=== PATIENT | female | born 1935 | race Caucasian/White ===

== ENCOUNTER 2017-01-02 13:22 | Emergency (ER) | payer OTHER ==
[~2017-01-02] VITALS: Ht 167.6 cm; Wt 75.0 kg
[~2017-01-02 13:22] MED LIST: ADVAIR HFA120 INHALA IH; HYDROCHLOROTHIA25 MG PO; KLOR-CON M2020 MEQ PO; LIPITOR80 MG PO; LO-DOSE ASPIRIN81 M1 PO; LOTRISONE15 GM TP; METHYLDOPA500 MG PO; PREDNISONE20 MG PO; SPIRIVA1 INHALATI IH; SYMBICORT60 INHALA1 IH; VENTOLIN HFA18 GM IH; VERAPAMIL ER300 MG PO; ZADITOR 0.100 DROP/5 BOTH EYES
[2017-01-02 16:09] LABS: MCH 32.7 PG (29.0-34.0); MCHC 33.9 G/DL (30.0-36.0); MCV 96.5 FL (83-99); MEAN PLAT.VOLUME 11.6 uM^3 (9.5-12.4); PLATELET COUNT 184 K/uL (156-360); RBC DIS.WIDTH-CV 13.4 % (11.8-14.6); RBC DIS.WIDTH-SD 47.5 % (39-53); RED BLOOD COUNT 4.25 M/uL (3.80-5.20); WHITE BLOOD COUNT 10.6 K/uL (4.1-10.2)
[2017-01-02 16:18] LABS: CHLORIDE 103 mEq/L (99-109); POTASSIUM 3.7 mEq/L (3.7-5.4); SODIUM 138 mEq/L (136-147)
[2017-01-02 16:20] LABS: GLUCOSE 98 mg/dL (70-99)
[2017-01-02 16:22] LABS: ANION GAP 11 MEQ/L (2-14)
[2017-01-02 16:24] LABS: GFR ESTIMATE (CALCULATED) > 59 mL/min/
[2017-01-02 16:26] LABS: UREA NITROGEN (BUN) 13 mg/dL (9-23)
[2017-01-02 16:30] LABS: TROP-I INTERPRETATION NEGATIVE; TROPONIN-I < 0.01 ng/mL (0.0-0.30)
[2017-01-02 18:15] LABS: ADD MIUA? NO; BILIRUBIN NEGATIVE; BLOOD NEGATIVE; COLOR YELLOW ((YELLOW)); GLUCOSE (STRIP) NEGATIVE; KETONES NEGATIVE; LEUKOCYTES NEGATIVE; NITRITE NEGATIVE; PROTEIN (STRIP) NEGATIVE; SPECIFIC GRAVITY 1.012 (1.000-1.030); UCUL ADDED? NO; UROBILINOGEN 0.2 MG/DL (0.2-1.0)
[2017-01-02 19:01] VITALS: BP 177/63
== END 2017-01-02 19:09 | disposition home or self-care (01) ==
LOC: EME 13:22
PROVIDERS: Emergency Medicine
DX: R53.1 Weakness (principal); J44.9 Chronic obstructive pulmonary disease, unspecified; E78.5 Hyperlipidemia, unspecified; I10 Essential (primary) hypertension; Z87.891 Personal history of nicotine dependence; Z85.3 Personal history of malignant neoplasm of breast; Z88.0 Allergy status to penicillin; Z88.2 Allergy status to sulfonamides
CPT/HCPCS: 71010; 80048; 81003; 84484; 85027; 93005; 99281; 99284

== ENCOUNTER 2017-09-23 05:57 | Observation (INO) | payer OTHER ==
[~2017-09-23] VITALS: Ht 152.4 cm; Wt 69.3 kg
[2017-09-23 06:46] LABS: APPEARANCE CLEAR ((CLEAR)); BILIRUBIN NEGATIVE; BLOOD NEGATIVE; COLOR STRAW ((YELLOW)); GLUCOSE (STRIP) NEGATIVE; KETONES NEGATIVE; LEUKOCYTES NEGATIVE; NITRITE NEGATIVE; PROTEIN (STRIP) 30; UROBILINOGEN 0.2 MG/DL (0.2-1.0)
[2017-09-23 07:00] LABS: BASOPHIL (%) 0.4 % (0-1); EOSINOPHIL (%) 0.8 % (0-5); EOSINOPHIL COUNT 0.1 K/uL (0-0.3); HEMATOCRIT 36.9 % (36.0-46.0); HEMOGLOBIN 12.6 G/DL (11.9-15.5); IMMATURE GRANULOCYTE (%) 0.5 % (0.0-0.7); LYMPHOCYTE (%) 15.1 % (15-42); LYMPHOCYTE COUNT 1.3 K/uL (1.0-2.8); MCH 32.3 PG (29.0-34.0); MCHC 34.1 G/DL (30.0-36.0); MCV 94.6 FL (83-99); MONOCYTE (%) 10.2 % (3-12); MONOCYTE COUNT 0.9 K/uL (0-0.8); NEUTROPHIL COUNT 6.1 K/uL (1.8-6.4); PLATELET COUNT 216 K/uL (156-360); RBC DIS.WIDTH-CV 13.7 % (11.8-14.6); RBC DIS.WIDTH-SD 47.7 % (39-53); WHITE BLOOD COUNT 8.3 K/uL (4.1-10.2)
[2017-09-23 07:37] LABS: CHLORIDE 96 MEQ/L (99-109); CREATINE KINASE 42 IU/L (1-294); CREATININE 0.4 MG/DL (0.6-1.3); GFR ESTIMATE (CALCULATED) > 59 mL/min/; GLUCOSE 98 mg/dL (70-99); POTASSIUM 3.2 MEQ/L (3.7-5.4); SODIUM 132 MEQ/L (136-147); TOTAL CK 42 IU/L (1-294); UREA NITROGEN (BUN) 11 mg/dL (9-23)
[2017-09-23 08:11] LABS: CK-MB 1.3 ng/mL (0.0-4.9); CKMB RELATIVE INDEX 3.1 (0.0-3.9)
[2017-09-23 14:48] LABS: TROP-I INTERPRETATION NEGATIVE; TROPONIN-I 0.01 ng/mL (0.0-0.30)
[2017-09-23] MEDS ORDERED: ARIMIDEX1 MG PO (15:10)
[2017-09-23] MEDS ORDERED: VITAMIN D32000 UNI1 PO (15:10)
[2017-09-23 16:30] VITALS: BP 120/58
[2017-09-23 17:05] LABS: TOTAL BILIRUBIN 1.2 mg/dL (0.0-1.0)
[2017-09-23 17:09] LABS: ALBUMIN 3.9 g/dL (3.2-4.8)
[2017-09-23 17:12] LABS: TOTAL PROTEIN 6.7 g/dL (6.4-8.3)
[2017-09-23 17:15] LABS: ALKALINE PHOSPHATASE 204 IU/L (3-129)
[2017-09-23 17:17] LABS: AST (GOT) 346 IU/L (2-34); DIRECT BILIRUBIN 0.6 mg/dL (0.0-0.3)
[2017-09-23 17:18] LABS: ALT (GPT) 197 IU/L (3-49)
[2017-09-23 20:01] VITALS: BP 105/63
[2017-09-23 23:37] VITALS: BP 98/52
[2017-09-24 04:08] VITALS: BP 134/71
[2017-09-24 06:07] LABS: HEMATOCRIT 37.2 % (36.0-46.0); HEMOGLOBIN 12.6 G/DL (11.9-15.5); MCH 32.4 PG (29.0-34.0); MCHC 33.9 G/DL (30.0-36.0); MCV 95.6 FL (83-99); PLATELET COUNT 196 K/uL (156-360); RBC DIS.WIDTH-CV 14.1 % (11.8-14.6); RBC DIS.WIDTH-SD 49.4 % (39-53); RED BLOOD COUNT 3.89 M/uL (3.80-5.20); WHITE BLOOD COUNT 10.6 K/uL (4.1-10.2)
[2017-09-24 06:10] LABS: CHLORIDE 96 MEQ/L (99-109); CREATININE 0.5 MG/DL (0.6-1.3); GFR ESTIMATE (CALCULATED) > 59 mL/min/; GLUCOSE 91 mg/dL (70-99); SODIUM 134 MEQ/L (136-147); UREA NITROGEN (BUN) 13 mg/dL (9-23)
[2017-09-24 06:14] LABS: POTASSIUM 3.9 MEQ/L (3.7-5.4)
[2017-09-24 08:29] VITALS: BP 135/61
[2017-09-24 10:29] LABS: ALBUMIN 3.6 G/DL (3.2-4.8); ALKALINE PHOSPHATASE 146 IU/L (3-129); ALT (GPT) 108 IU/L (3-49); AST (GOT) 81 IU/L (2-34); DIRECT BILIRUBIN 0.2 mg/dL (0.0-0.3); LIPASE 8 U/L (1.0-51.0); TOTAL PROTEIN 6.1 G/DL (6.4-8.3)
[2017-09-24 12:04] VITALS: BP 115/57
[2017-09-24] MEDS ORDERED: Thiamine,Vitamin B1 PO (13:00)
[2017-09-24] MEDS ORDERED: FOLIC ACID1 MG PO (13:00)
[2017-09-24] MEDS ORDERED: CHLORDIAZEPOXID25 MG PO (13:02)
[2017-09-25 10:46] LABS: HEPATITIS B SURFACE ANTIGEN Nonreactive
[2017-09-25 10:47] LABS: ANTI-HEPATITIS A VIRUS (IGM) Nonreactive; HEPATITIS C ANTIBODY Nonreactive
[2017-09-25 10:49] LABS: ANTI-HEPATITIS B CORE (IGM) Nonreactive
== END 2017-09-24 13:51 ==
LOC: EME 05:57 → 3EAST 14:06 → EDOF 14:06 → ENRESERV 14:12 → 3EAST 15:32
PROVIDERS: Emergency Medicine; Physician Assistant
DX: M25.552 Pain in left hip (principal); W18.30XA Fall on same level, unspecified, initial encounter; F10.20 Alcohol dependence, uncomplicated; R79.89 Other specified abnormal findings of blood chemistry; E87.6 Hypokalemia; E87.1 Hypo-osmolality and hyponatremia; F43.21 Adjustment disorder with depressed mood; Z63.4 Disappearance and death of family member; R26.89 Other abnormalities of gait and mobility; D32.0 Benign neoplasm of cerebral meninges; J44.9 Chronic obstructive pulmonary disease, unspecified; I10 Essential (primary) hypertension; F32.9 Major depressive disorder, single episode, unspecified; Z85.3 Personal history of malignant neoplasm of breast; Z79.810 Long term (current) use of selective estrogen receptor modulators (SERMs); M48.00 Spinal stenosis, site unspecified; M19.90 Unspecified osteoarthritis, unspecified site; Z87.891 Personal history of nicotine dependence; E78.5 Hyperlipidemia, unspecified; Z79.82 Long term (current) use of aspirin; Z90.710 Acquired absence of both cervix and uterus; Z90.79 Acquired absence of other genital organ(s); Z90.722 Acquired absence of ovaries, bilateral; Z88.0 Allergy status to penicillin; Z88.2 Allergy status to sulfonamides; Z88.8 Allergy status to other drugs, medicaments and biological substances; Z91.048 Other nonmedicinal substance allergy status
CPT/HCPCS: 70450; 70553; 73502; 80048; 80074; 80076; 81003; 82550; 82553; 83690; 83735; 83930; 83935; 84300; 84484; 85025; 85027; 86705; 86709; 86803; 87340; 93005; 93971; 94640; 94799; 99202; 99281; 99285; G0378; G8978 GP CM; G8979 CJ; G8980 GP CM; G8987 GO CJ; G8988 CI; G8989 CJ; J0360; J1644; J2060; J7030

== ENCOUNTER 2017-09-24 13:57 | Inpatient (IN) | payer OTHER ==
[~2017-09-24] VITALS: Ht 152.4 cm; Wt 67.3 kg
[2017-09-24 13:50] VITALS: BP 116/56
[~2017-09-24 13:57] MED LIST changes: +ARIMIDEX1 MG PO; +CHLORDIAZEPOXID25 MG PO; +FOLIC ACID1 MG PO; +Thiamine,Vitamin B1 PO; +VITAMIN D32000 UNI1 PO
[2017-09-25 00:36] VITALS: BP 126/59
[2017-09-25 05:20] VITALS: BP 130/80
[2017-09-25 07:47] LABS: HEMATOCRIT 36.4 % (36.0-46.0); HEMOGLOBIN 12.3 G/DL (11.9-15.5); MCH 32.2 PG (29.0-34.0); MCHC 33.8 G/DL (30.0-36.0); MCV 95.3 FL (83-99); PLATELET COUNT 187 K/uL (156-360); RBC DIS.WIDTH-SD 48.8 % (39-53); RED BLOOD COUNT 3.82 M/uL (3.80-5.20); WHITE BLOOD COUNT 5.8 K/uL (4.1-10.2)
[2017-09-25 08:17] LABS: ALBUMIN 3.1 G/DL (3.2-4.8); ALKALINE PHOSPHATASE 111 IU/L (3-129); ALT (GPT) 73 IU/L (3-49); CHLORIDE 100 MEQ/L (99-109); CREATININE 0.4 MG/DL (0.6-1.3); GFR ESTIMATE (CALCULATED) > 59 mL/min/; GLUCOSE 95 mg/dL (70-99); POTASSIUM 3.5 MEQ/L (3.7-5.4); SODIUM 137 MEQ/L (136-147); TOTAL PROTEIN 5.3 G/DL (6.4-8.3); UREA NITROGEN (BUN) 11 mg/dL (9-23)
[2017-09-25 08:34] LABS: AST (GOT) 41 IU/L (2-34); TOTAL BILIRUBIN 0.6 MG/DL (0.0-1.0)
[2017-09-25 15:48] VITALS: BP 129/61
[2017-09-26 06:38] VITALS: BP 138/77
[2017-09-26 06:50] VITALS: BP 153/67
[2017-09-26 08:07] LABS: PTT 36.3 SEC (25-37)
[2017-09-26 11:54] LABS: APPEARANCE HAZY/YELLOW; RED CELL COUNT 5200 /MM^3 (0-1); WHITE CELL COUNT 128 /MM^3 (0-200.0)
[2017-09-26 12:27] LABS: CRYSTALS ND
[2017-09-26 12:32] LABS: MONONUCLEAR WBC'S 88 %; POLYNUCLEAR WBC'S 12 % (0-25); SYNOVIAL FLUID EOSINOPHILS 0 % (0-25)
[2017-09-26 15:06] VITALS: BP 128/60
[2017-09-27 05:28] VITALS: BP 126/65
[2017-09-27 15:47] VITALS: BP 158/69
[2017-09-28 05:59] VITALS: BP 160/75
[2017-09-28 15:23] VITALS: BP 141/63
[2017-09-28 16:34] LABS: HEMATOCRIT 36.8 % (36.0-46.0); HEMOGLOBIN 11.9 G/DL (11.9-15.5); MCH 32.5 PG (29.0-34.0); MCHC 32.3 G/DL (30.0-36.0); PLATELET COUNT 205 K/uL (156-360); RBC DIS.WIDTH-CV 14.4 % (11.8-14.6); RBC DIS.WIDTH-SD 53.8 % (39-53); RED BLOOD COUNT 3.66 M/uL (3.80-5.20); WHITE BLOOD COUNT 8.3 K/uL (4.1-10.2)
[2017-09-28 16:35] LABS: MCV 100.5 FL (83-99)
[2017-09-28 16:57] LABS: CHLORIDE 104 MEQ/L (99-109); CREATININE 0.6 MG/DL (0.6-1.3); GFR ESTIMATE (CALCULATED) > 59 mL/min/; GLUCOSE 96 mg/dL (70-99); SODIUM 137 MEQ/L (136-147); UREA NITROGEN (BUN) 18 mg/dL (9-23)
[2017-09-28 16:58] LABS: POTASSIUM 4.8 MEQ/L (3.7-5.4)
[2017-09-29 04:58] VITALS: BP 118/59
[2017-09-29 16:17] VITALS: BP 153/66
[2017-09-30 06:13] VITALS: BP 169/70
[2017-09-30 16:22] VITALS: BP 96/47
[2017-10-01 06:00] VITALS: BP 134/90
[2017-10-01 15:17] VITALS: BP 124/58
[2017-10-02 05:55] VITALS: BP 151/70
[2017-10-02 15:10] VITALS: BP 134/60
[2017-10-03 05:37] VITALS: BP 132/61
[2017-10-03 08:20] VITALS: BP 135/63
[2017-10-03 15:42] VITALS: BP 136/62
[2017-10-04 05:19] VITALS: BP 140/65
[2017-10-04 08:30] VITALS: BP 122/56
[2017-10-04 15:19] VITALS: BP 146/67
[2017-10-05 04:53] VITALS: BP 167/82
[2017-10-05 07:03] LABS: BASOPHIL (%) 0.9 % (0-1); BASOPHIL COUNT 0.1 K/uL (0-0.1); EOSINOPHIL (%) 1.5 % (0-5); EOSINOPHIL COUNT 0.1 K/uL (0-0.3); HEMATOCRIT 36.3 % (36.0-46.0); HEMOGLOBIN 11.6 G/DL (11.9-15.5); IMMATURE GRANULOCYTE (%) 0.7 % (0.0-0.7); LYMPHOCYTE (%) 23.4 % (15-42); LYMPHOCYTE COUNT 1.3 K/uL (1.0-2.8); MCH 31.4 PG (29.0-34.0); MCV 98.1 FL (83-99); MONOCYTE (%) 11.3 % (3-12); MONOCYTE COUNT 0.6 K/uL (0-0.8); NEUTROPHIL (%) 62.2 % (45-76); NEUTROPHIL COUNT 3.4 K/uL (1.8-6.4); PLATELET COUNT 243 K/uL (156-360); RBC DIS.WIDTH-SD 50.8 % (39-53); WHITE BLOOD COUNT 5.5 K/uL (4.1-10.2)
[2017-10-05 07:22] LABS: ALBUMIN 3.4 G/DL (3.2-4.8); CHLORIDE 109 MEQ/L (99-109); POTASSIUM 4.2 MEQ/L (3.7-5.4); SODIUM 142 MEQ/L (136-147); TOTAL BILIRUBIN 0.4 MG/DL (0.0-1.0)
[2017-10-05 07:28] LABS: ALKALINE PHOSPHATASE 81 IU/L (3-129); ALT (GPT) 42 IU/L (3-49); AST (GOT) 22 IU/L (2-34); CREATININE 0.5 MG/DL (0.6-1.3); GFR ESTIMATE (CALCULATED) > 59 mL/min/; GLUCOSE 89 mg/dL (70-99); TOTAL PROTEIN 5.7 G/DL (6.4-8.3); UREA NITROGEN (BUN) 16 mg/dL (9-23)
[2017-10-05 15:05] VITALS: BP 108/64
[2017-10-06 04:22] VITALS: BP 143/65
[2017-10-06 15:30] VITALS: BP 114/56
[2017-10-07 05:39] VITALS: BP 141/67
[2017-10-07 15:52] VITALS: BP 106/47
[2017-10-08 05:56] VITALS: BP 146/68
[2017-10-08] MEDS ORDERED: CALAN SR,COVER240 MG PO (08:24)
[2017-10-08] MEDS ORDERED: Thiamine,Vitamin B1 PO (08:24)
[2017-10-08] MEDS ORDERED: SENNA PLUS TAB1 EACH PO (08:24)
[2017-10-08] MEDS ORDERED: POLYETHYLENE GL17 GM PO (08:24)
[2017-10-08] MEDS ORDERED: KLOR-CON M2020 MEQ PO (08:24)
[2017-10-08] MEDS ORDERED: ALDOMET250 MG PO (08:24)
[2017-10-08] MEDS ORDERED: SPIRIVA1 INHALATI IH (08:24)
[2017-10-08] MEDS ORDERED: FOLIC ACID1 MG PO (08:24)
[2017-10-08] MEDS ORDERED: SYMBICORT60 INHALA1 IH (08:24)
[2017-10-08 11:19] VITALS: BP 155/67
== END 2017-10-08 13:55 | disposition home health service (06) | DRG 560 ==
LOC: 3WEST 13:57 → ENPENDDIS 10-08 → 3WEST 10-08 13:55
PROVIDERS: Physical Medicine & Rehabilitation Pain Medicine; Psychiatry & Neurology Neurology; Radiology Diagnostic Radiology
PROC: F07M0ZZ Range of Motion and Joint Mobility Treatment of Musculoskeletal System - Whole Body (ICD-10-PCS; principal; 2017-09-24)
PROC: 0S9B3ZX Drainage of Left Hip Joint, Percutaneous Approach, Diagnostic (ICD-10-PCS; 2017-09-26)
DX: M84.352D Stress fracture, left femur, subsequent encounter for fracture with routine healing (principal); E87.1 Hypo-osmolality and hyponatremia; G45.8 Other transient cerebral ischemic attacks and related syndromes; F33.9 Major depressive disorder, recurrent, unspecified; R53.1 Weakness; I10 Essential (primary) hypertension; J44.9 Chronic obstructive pulmonary disease, unspecified; K59.00 Constipation, unspecified; I35.0 Nonrheumatic aortic (valve) stenosis; W18.30XD Fall on same level, unspecified, subsequent encounter; M47.896 Other spondylosis, lumbar region; M16.0 Bilateral primary osteoarthritis of hip; M47.898 Other spondylosis, sacral and sacrococcygeal region; M53.3 Sacrococcygeal disorders, not elsewhere classified; D32.0 Benign neoplasm of cerebral meninges; E78.5 Hyperlipidemia, unspecified; E87.6 Hypokalemia; M67.352 Transient synovitis, left hip; D72.829 Elevated white blood cell count, unspecified; K57.90 Diverticulosis of intestine, part unspecified, without perforation or abscess without bleeding; Z60.2 Problems related to living alone; F10.20 Alcohol dependence, uncomplicated; M25.452 Effusion, left hip; Z91.81 History of falling; Z90.710 Acquired absence of both cervix and uterus; Z87.891 Personal history of nicotine dependence; Z85.3 Personal history of malignant neoplasm of breast; Z79.811 Long term (current) use of aromatase inhibitors; Y92.019 Unspecified place in single-family (private) house as the place of occurrence of the external cause; Z79.82 Long term (current) use of aspirin; Z88.0 Allergy status to penicillin; Z88.2 Allergy status to sulfonamides; Z82.49 Family history of ischemic heart disease and other diseases of the circulatory system; Z82.3 Family history of stroke; Z80.9 Family history of malignant neoplasm, unspecified
CPT/HCPCS: 73521; 73700; 73721; 80048; 80053; 85025; 85027; 85610; 85730; 87070; 87075; 87205; 89051; 93005; 93880; 94640; 94640 76; 94760; 97110 GO; 97530 GP; J1644

== ENCOUNTER → 2017-10-10 | Outpatient (CLI) | payer OTHER ==
[~2017-10-10] MED LIST changes: +ALDOMET250 MG PO; +CALAN SR,COVER240 MG PO; +POLYETHYLENE GL17 GM PO; +SENNA PLUS TAB1 EACH PO
== END | disposition home or self-care (01) ==
LOC: RAD 15:40
DX: I25.10 Atherosclerotic heart disease of native coronary artery without angina pectoris (principal); R91.8 Other nonspecific abnormal finding of lung field; R06.00 Dyspnea, unspecified; R42 Dizziness and giddiness
CPT/HCPCS: 71275